=== PATIENT | female | born 1990 | race Native Hawaiian/Other Pacific Islander ===

== ENCOUNTER 2019-04-07 22:05 | Emergency (ER) | payer OTHER ==
[~2019-04-07] VITALS: Ht 154.9 cm; Wt 55.3 kg
[~2019-04-07 22:05] MED LIST: FERROUS SULF325 MG PO; TERBUTALINE PO
[2019-04-07 22:49] LABS: PLATELET COUNT 203 K/uL (152-353)
[2019-04-07 23:19] LABS: PARTIAL THROMBOPLASTIN TIME 27.2 SECONDS (24.5-33.6)
[2019-04-07 23:22] LABS: POTASSIUM 3.7 mmol/L (3.6-5.2)
[2019-04-08 01:25] VITALS: BP 132/92; TEMP 98.9
== END 2019-04-08 01:25 | disposition home or self-care (01) ==
LOC: ED 22:05
PROVIDERS: Hospitalist
DX: N10 Acute pyelonephritis (principal)
CPT/HCPCS: 36415; 80053; 81000; 81025; 82150; 83690; 85027; 85610; 85730; 87077; 87086; 87088; 87186; 96360; 96365; 99284; J1885; J1956; J2405; Q9963